=== PATIENT | female | born 1960 | race Hispanic/Latino ===

== ENCOUNTER → 2016-11-09 | Outpatient (CLI) | payer BC ==
--- NOTE | 2016-11-11 13:11 | Diagnostic Imaging Report ---
INDICATION: Thyroid cancer EXAM: Whole body thyroid scan TECHNIQUE: 2.05 mCi of sodium I-131 was given orally. FINDINGS: There is activity seen in the salivary glands, gastric mucosa and intestinal tract. There are no focal areas of activity considered suspicious for metastatic disease. IMPRESSION: Whole body thyroid scan does not show any evidence for metastatic disease. Dictated by: Dictated on workstation # [id number]
== END ==
LOC: CARD 13:48
PROVIDERS: ATTEND Radiology Radiation Oncology
DX: C73 Malignant neoplasm of thyroid gland (principal)
CPT/HCPCS: 78018

== ENCOUNTER 2016-11-11 11:34 | Outpatient (RCR) | payer BC ==
[2016-11-14 07:33] LABS: THYROGLOBULIN LEVELC 0.28 ng/mL (1.60-59.90)
[2016-11-15 07:40] LABS: THYROGLOBULIN AUTOANTIBODY PT 0.1 Units (0.00-0.50)
== END 2017-02-09 | disposition home or self-care (01) ==
LOC: ONC 11:34
PROVIDERS: ATTEND Radiology Radiation Oncology
DX: C73 Malignant neoplasm of thyroid gland (principal)
CPT/HCPCS: 36415; 84432; 86800

== ENCOUNTER → 2016-11-11 | Outpatient (CLI) | payer BC | LOC: CARD 12:21 | PROVIDERS: ATTEND Radiology Radiation Oncology | DX: C73 Malignant neoplasm of thyroid gland (principal) ==